=== PATIENT | male | born 1940 | race Two or more races ===

== ENCOUNTER 2019-03-14 07:26 | Emergency (ER) | payer MEDICARE, MEDICAID ==
[~2019-03-14] VITALS: Ht 162.6 cm; Wt 65.8 kg
--- NOTE | 2019-03-14 07:43 | NUR ---
DR SELBY AT BEDSIDE FOR EVAL.
[2019-03-14] MEDS ORDERED: TDAP [DIPH/PERTUSSIS/TET] 0.5 ML VIAL IM ONE ×2 (07:54→08:00)
[2019-03-14] MEDS ORDERED: IV NS 0.9% 1,000 ML BAG IV ONE (08:00)
--- NOTE | 2019-03-14 08:05 | NUR ---
SAFETY TECHNICIAN AT BEDSIDE FOR BLOOD DRAW.
[2019-03-14 08:11] LABS: BASOPHILS # (AUTO) 0.2 /CMM (0.0-0.2); BASOPHILS % (AUTO) 2.1 % (0.0-2.0); EOSINOPHILS % (AUTO) 3.2 % (0.0-6.0); HEMATOCRIT 45 % (39-51); HEMOGLOBIN 15.4 g/dL (13.5-17.5); LYMPHOCYTES % (AUTO) 12.9 % (20.0-44.0); MEAN CORPUSCULAR HGB CONC 34 g/dl (31.0-36.0); MEAN CORPUSCULAR VOLUME 96 fL (80-96); MONOCYTES # (AUTO) 0.3 /CMM (0.1-1.30); MONOCYTES % (AUTO) 3.7 % (2.0-12.0); NEUTROPHILS # (AUTO) 5.8 /CMM (1.8-8.9); NEUTROPHILS % (AUTO) 78.1 % (43.0-81.0); PLATELET COUNT (AUTO) 159 /CMM (150-450); RED BLOOD CELL COUNT(AUTO) 4.69 MIL/uL (4.5-6.0); WHITE BLOOD COUNT (AUTO) 7.5 K/uL (4.3-11.0)
[2019-03-14 08:18] LABS: CALCIUM, SERUM 8.7 mg/dL (8.5-10.1); CARBON DIOXIDE 30 mmol/L (21-32); CHLORIDE 108 mmol/L (98-107); CREATININE 1.3 mg/dL (0.6-1.3); GLUCOSE 133 mg/dL (74-106); POTASSIUM 4.6 mmol/L (3.5-5.1); SODIUM SERUM 144 mmol/L (136-145); UREA NITROGEN, BLOOD 18 mg/dL (7-18)
--- NOTE | 2019-03-14 08:22 | NUR ---
PT TO RADIOLOGY FOR HEAD CT SCAN VAHE MOROCHO.
[2019-03-14 08:29] LABS: ALANINE AMINOTRANSFERASE 29 U/L (12-78); ALKALINE PHOSPHATASE 61 U/L (46-116); ASPARTATE AMINOTRANSFERASE 20 U/L (15-37); BILIRUBIN,DIRECT 0.1 mg/dL (0.0-0.2); BILIRUBIN,TOTAL 0.4 mg/dL (0.2-1.0); TOTAL PROTEIN, SERUM 6.9 g/dL (6.4-8.2)
--- NOTE | 2019-03-14 08:44 | NUR ---
[facility] PAGED
--- NOTE | 2019-03-14 09:39 | NUR ---
Patient does not wish to proceed with medical care recommended by Dr. Alonzo. Patient given information related to possible complications, up to and including , which could occur as a result of leaving the hospital at this time. Patient verbalizes understanding of risks involved due to leaving against medical advice. Patient has signed AMA form. Patient discharged to home in stable condition. Written and verbal after care instructions given. Patient verbalizes understanding of instruction.IV removed. Catheter intact and site benign. Pressure and 4x4 applied to site. No bleeding noted.
[2019-03-14 09:40] VITALS: BP 112/77
== END 2019-03-14 09:40 | disposition left against medical advice (07) ==
LOC: ER 07:28
DX: S01.01XA Laceration without foreign body of scalp, initial encounter (principal); R55 Syncope and collapse; I10 Essential (primary) hypertension; G20 Parkinson's disease; W26.8XXA Contact with other sharp object(s), not elsewhere classified, initial encounter; Y93.89 Activity, other specified; Y92.002 Bathroom of unspecified non-institutional (private) residence as the place of occurrence of the external cause; Y99.8 Other external cause status
CPT/HCPCS: 12002; 36415; 70450; 71045; 80048; 80076; 82962; 84484; 85025; 85730; 90471; 90715; 93005; 96360; 99284; A6402; J7030

== ENCOUNTER 2022-06-27 13:37 | Emergency (ER) | payer MEDICARE, OTHER ==
[~2022-06-27] VITALS: Ht 160 cm; Wt 64.4 kg
--- NOTE | 2022-06-27 13:45 | NUR ---
c/o Right wirist pain and swollen x last night s/p GLF while walking with his walker -- missed the curb. AMBULATORY, SEATED ON CHAIR.
--- NOTE | 2022-06-27 15:30 | NUR ---
X-RAY OF THE R WRIST DONE
--- NOTE | 2022-06-27 16:50 | NUR ---
Patient discharged to home in stable condition. Written and verbal after care instructions given. Patient and Family verbalizes understanding of instruction.
[2022-06-27 16:51] VITALS: BP 100/60
== END 2022-06-27 16:40 | disposition home or self-care (01) ==
LOC: ER 13:42
DX: M25.531 Pain in right wrist (principal); I10 Essential (primary) hypertension; G20 Parkinson's disease; W18.39XA Other fall on same level, initial encounter; Y93.01 Activity, walking, marching and hiking; Y92.89 Other specified places as the place of occurrence of the external cause; Y99.8 Other external cause status
CPT/HCPCS: 73110